=== PATIENT | female | born 1985 | race Caucasian/White ===

== ENCOUNTER 2018-01-22 21:33 | Emergency (ER) | payer MEDICAID ==
[~2018-01-22] VITALS: Ht 152.4 cm; Wt 54.4 kg
[2018-01-22 21:39] VITALS: BP_SYST 119
--- NOTE | 2018-01-22 22:30 | NUR ---
Patient to ER via triage with c/o generalized rash x 2 weeks. Per patient, her son has had been diagnosed with scabies and has been given treatment. Patient is awake, alert and oriented in no acute distress, vital signs stable, respirations even and unlabored, skin warm and dry to touch. Patient able to ambulate to bed 8 without difficulty with slow, steady gait. Awaiting evaluation by ER MD, will continue to observe and assess.
--- NOTE | 2018-01-22 22:30 | NUR ---
Patient to ER bed 8 for evaluation.
--- NOTE | 2018-01-22 22:31 | NUR ---
ER at bedside examining patient.
--- NOTE | 2018-01-22 23:30 | NUR ---
Patient resting quietly in no acute distress, awaiting dispo.
[2018-01-22 23:47] VITALS: BP_SYST 118
--- NOTE | 2018-01-22 23:47 | NUR ---
Patient given written and verbal discharge instructions and verbalizes understanding. ER MD discussed with patient the results and treatment provided. Patient in stable condition. ID arm band removed. Rx of Prednisone 50 mg tab given. Patient educated on pain management and to follow up with PMD. Pain Scale 0/10. Opportunity for questions provided and answered.
== END 2018-01-22 23:47 | disposition home or self-care (01) ==
LOC: SED 21:33
DX: L30.9 Dermatitis, unspecified (principal)
CPT/HCPCS: 99283

== ENCOUNTER 2018-11-09 16:15 | Emergency (ER) | payer MEDICAID ==
[~2018-11-09] VITALS: Ht 152.4 cm; Wt 54.4 kg
[2018-11-09 16:29] VITALS: BP_SYST 132
--- NOTE | 2018-11-09 16:34 | NUR ---
Patient to ER bed 2 to gown for evaluation. Side rails up.Report given to Marek KEENAN.
--- NOTE | 2018-11-09 16:35 | NUR ---
Patient is awake, alert, and oriented x4. Patient is complaining of UTI symptoms since yesterday. Patient states she has severe pressure on her bladder. Denies nausea, vomiting, diarhhea.
--- NOTE | 2018-11-09 16:40 | NUR ---
ER at bedside examining patient.
[2018-11-09 16:52] VITALS: BP_SYST 132
--- NOTE | 2018-11-09 16:52 | NUR ---
Patient given written and verbal discharge instructions and verbalizes understanding. ER MD discussed with patient the results and treatment provided. Patient in stable condition. ID arm band removed. Rx of keflex given. Patient educated on pain management and to follow up with PMD. Pain Scale 0/10. Opportunity for questions provided and answered. Medication side effect fact sheet provided.
== END 2018-11-09 16:52 | disposition home or self-care (01) ==
LOC: SED 16:15
DX: N39.0 Urinary tract infection, site not specified (principal)
CPT/HCPCS: 81002; 99282

== ENCOUNTER 2019-02-01 07:42 | Emergency (ER) | payer MEDICAID ==
[~2019-02-01] VITALS: Ht 152.4 cm; Wt 54.4 kg
[2019-02-01 07:54] VITALS: BP_SYST 135
[2019-02-01 08:36] VITALS: BP_SYST 135
== END 2019-02-01 08:36 | disposition home or self-care (01) ==
LOC: SED 07:42
DX: N39.0 Urinary tract infection, site not specified (principal); F17.210 Nicotine dependence, cigarettes, uncomplicated
CPT/HCPCS: 81002; 81025; 99283

== ENCOUNTER 2019-02-21 03:26 | Emergency (ER) | payer MEDICAID ==
[~2019-02-21] VITALS: Ht 152.4 cm; Wt 52.6 kg
[2019-02-21 03:37] VITALS: BP_SYST 144
--- NOTE | 2019-02-21 03:44 | NUR ---
Pt placed to ER bed 07, to gown.
--- NOTE | 2019-02-21 03:45 | NUR ---
Dr. Aburto at bedside.
--- NOTE | 2019-02-21 03:48 | NUR ---
Pt report given to SHLOMO Rogers.
--- NOTE | 2019-02-21 03:55 | NUR ---
Meredith, admitting, at bedside to [place] Dr. Aburto with Vagnial exam.
[2019-02-21 04:05] LABS: BILIRUBIN,URINE NEGATIVE (NEGATIVE); CLARITY/URINE CLEAR (CLEAR); COLOR,URINE YELLOW (YELLOW); GLUCOSE,URINE NEGATIVE (NEGATIVE); KETONES,URINE TRACE (NEGATIVE); LEUKOCYTE ESTERASE ,URINE NEGATIVE (NEGATIVE); NITRITE, URINE NEGATIVE (NEGATIVE); PROTEIN URINE NEGATIVE (NEGATIVE)
--- NOTE | 2019-02-21 04:08 | NUR ---
BLOOD DRAWN BY LAB.[facility].
[2019-02-21 04:13] LABS: BLOOD, URINE TRACE (NEGATIVE)
[2019-02-21 04:16] LABS: BACTERIA,URINE MODERATE /HPF (None Seen); WBC,URINE 0-3 /HPF (0-3)
[2019-02-21 04:21] LABS: BASOPHILS % (AUTO) 0.3 % (0.0-2.0); EOSINOPHILS % (AUTO) 0.5 % (0.0-4.0); HEMATOCRIT 39.2 % (36-48); HEMOGLOBIN 13.1 g/dL (12.0-16.0); LYMPHOCYTES # (AUTO) 1.8 K/uL (1.0-5.5); LYMPHOCYTES % (AUTO) 23.9 % (20.5-51.5); MEAN CORPUSCULAR HEMOGLOBIN 32 pg (27-31); MEAN CORPUSCULAR HGB CONC 33 % (32-36); MEAN CORPUSCULAR VOLUME 96 fL (79.0-98.0); MONOCYTES # (AUTO) 0.7 K/uL (0.0-1.0); MONOCYTES % (AUTO) 8.8 % (1.7-9.3); NEUTROPHILS # (AUTO) 4.9 K/uL (1.8-7.7); NEUTROPHILS % (AUTO) 66.5 % (40.0-70.0); PLATELET COUNT (AUTO) 222 K/uL (130-430); RED BLOOD CELL COUNT(AUTO) 4.07 MIL/uL (4.2-6.2); RED CELL DISTRIBUTION WIDTH 12.9 % (9.0-15.0); WHITE BLOOD COUNT (AUTO) 7.4 K/uL (4.8-10.8)
[2019-02-21 04:33] LABS: CALCIUM 8.3 mg/dL (8.4-11.0); CREATININE 0.48 mg/dL (0.55-1.30); POTASSIUM 3.5 mmol/L (3.5-5.1)
--- NOTE | 2019-02-21 04:35 | NUR ---
ULTRASOUND BEING DONE AT BEDSIDE.
[2019-02-21 04:47] LABS: ALBUMIN 3.4 g/dL (3.4-4.8); TOTAL BILIRUBIN 0.1 mg/dL (0.0-1.0)
--- NOTE | 2019-02-21 05:57 | NUR ---
DISCHARGED STABLE AND IMPROVED. PRESCRIPTION,VERBAL AND WRITTEN AFTERCARE INSTRUCTIONS GIVEN. VERBALIZED UNDERSTANDING. LEFT AMBULATORY WITH STABLE GAIT.
[2019-02-21 06:03] VITALS: BP_SYST 123
== END 2019-02-21 05:57 | disposition home or self-care (01) ==
LOC: SED 03:26
DX: O20.0 Threatened abortion (principal); R82.71 Bacteriuria; Z3A.01 Less than 8 weeks gestation of pregnancy
CPT/HCPCS: 36415; 76856-TC; 80053; 81000-TC; 84702-TC; 85025; 86900; 86901; 87086; 99284

== ENCOUNTER 2019-03-09 18:38 | Emergency (ER) | payer MEDICAID ==
[~2019-03-09] VITALS: Ht 165.1 cm; Wt 52.6 kg
[2019-03-09 19:12] VITALS: BP_SYST 105
--- NOTE | 2019-03-09 19:16 | NUR ---
Patient triaged and placed in waiting room. VSS and patient appears in no acute distress at this time. Accompanied by aunt, awaiting available bed, and MD notified of need for MSE.
--- NOTE | 2019-03-09 20:15 | NUR ---
Pt presents to ER with c/o dizziness, tired, chills, nausea, vomiting, pain with urination and frequency with urination. Pt states symptoms began "a few days ago." Pt states she is but does not know how far along she is. Will continue to monitor.
--- NOTE | 2019-03-09 20:18 | NUR ---
VANESSA Huertas at bedside examining patient.
--- NOTE | 2019-03-09 20:22 | NUR ---
Pt ambulatory to bed 2 for evaluation
[2019-03-09 21:00] VITALS: BP_SYST 116
--- NOTE | 2019-03-09 21:00 | NUR ---
Patient given written and verbal discharge instructions and verbalizes understanding. ER MD discussed with patient the results and treatment provided. Patient in stable condition. ID arm band removed. No IV Rx of and Keflex given. Patient educated on pain management and to follow up with PMD. Pain Scale 0/10. Opportunity for questions provided and answered. Medication side effect fact sheet provided.
== END 2019-03-09 21:00 | disposition home or self-care (01) ==
LOC: SED 18:38
DX: O23.41 Unspecified infection of urinary tract in pregnancy, first trimester (principal); Z3A.01 Less than 8 weeks gestation of pregnancy
CPT/HCPCS: 36415; 86710; 99283

== ENCOUNTER 2022-11-21 03:54 | Emergency (ER) | payer MEDICAID ==
[~2022-11-21] VITALS: Ht 152.4 cm; Wt 54.4 kg
[2022-11-21 04:15] VITALS: BP_SYST 144; PULSE 92; RESP 17; TEMP 98; O2SAT 99
[2022-11-21 05:47] VITALS: BP_SYST 118; PULSE 72; RESP 20; TEMP 97.7; O2SAT 98
[2022-11-21 06:15] LABS: BILIRUBIN,URINE NEGATIVE (NEGATIVE); BLOOD, URINE NEGATIVE (NEGATIVE); CLARITY/URINE Clear (CLEAR); COLOR,URINE YELLOW (YELLOW); GLUCOSE,URINE Trace (NEGATIVE); NITRITE, URINE NEGATIVE (NEGATIVE); PROTEIN URINE NEGATIVE (NEGATIVE)
[2022-11-21 06:19] LABS: KETONES,URINE NEGATIVE (NEGATIVE); LEUKOCYTE ESTERASE ,URINE NEGATIVE (NEGATIVE)
== END 2022-11-21 05:47 | disposition home or self-care (01) ==
LOC: SED 03:54
DX: N89.8 Other specified noninflammatory disorders of vagina (principal); Z79.899 Other long term (current) drug therapy
CPT/HCPCS: 99283; 87210; 81003; J7030